=== PATIENT | female | born 1980 ===

== ENCOUNTER → 2019-03-09 | Outpatient (CLI) | payer OTHER ==
[2019-03-14 15:06] LABS: CHLAMYDIA TRACHOMATIS, NAA Negative (Negative); HPV 16 Negative (Negative); HPV 18 Negative (Negative); HPV OTHER HR TYPES Negative (Negative); NEISSERIA GONORRHOEAE, NAA Negative (Negative)
== END | disposition home or self-care (01) ==
LOC: LAB SHORT 11:52 → LAB 11:52
PROVIDERS: Obstetrics & Gynecology
DX: Z36.89 Encounter for other specified antenatal screening (principal)
CPT/HCPCS: 87491; 87591; 87624; G0123

== ENCOUNTER → 2019-08-11 | Outpatient (CLI) | payer OTHER | END | disposition home or self-care (01) | LOC: LAB 11:30 → LAB SHORT 11:30 | DX: O09.529 Supervision of elderly multigravida, unspecified trimester (principal) | CPT/HCPCS: 87081; 87653 ==

== ENCOUNTER 2019-09-01 15:24 | Inpatient (IN) | payer OTHER ==
[~2019-09-01] VITALS: Ht 149.9 cm; Wt 57.0 kg
[2019-09-03] MEDS ORDERED: PRENATAL TABLE1 EAC2 (14:14)
[2019-09-03 14:27] LABS: BASOPHILS ABSOLUTE AUTO 0.04 K/mm3 (0.00-0.23); BASOPHILS PERCENT AUTO 1 % (0-2); EOSINOPHILS ABSOLUTE AUTO 0.03 K/mm3 (0.00-0.68); EOSINOPHILS PERCENT AUTO 0 % (0-6); Hematocrit 33.4 % (33.0-51.0); IMMATURE GRAN ABSOLUTE AUTO 0.03 K/mm3 (0.00-0.10); IMMATURE GRAN PERCENT AUTO 0 % (0-1); LYMPHOCYTES ABSOLUTE AUTO 2.07 K/mm3 (0.84-5.20); LYMPHOCYTES PERCENT AUTO 31 % (21-46); MONOCYTES ABSOLUTE AUTO 0.54 K/mm3 (0.16-1.47); MONOCYTES PERCENT AUTO 8 % (4-13); Mean Corpuscular HGB Conc 32.9 g/dL (31.5-36.5); Mean Corpuscular Volume 85 fL (80-100); Mean Platelet Volume 10.9 fL (9.1-12.4); NEUTROPHILS ABSOLUTE AUTO 3.97 K/mm3 (1.96-9.15); NEUTROPHILS PERCENT AUTO 60 % (41-73); Platelet Count 262 K/mm3 (150-400); RDW Coefficient Variation 12.4 % (11.7-14.2); RDW Standard Deviation 38.1 fL (35.1-46.3); Red Blood Cell Count 3.93 M/mm3 (3.80-5.20); White Blood Cell Count 6.68 K/mm3 (4.00-11.30)
--- NOTE | 2019-09-04 08:34 | NUR ---
PATIENT PERMISSION PATIENT GAVE THIS STUDENT NURSE PERMISSION TO INSERT IV INTO RIGHT FORARM.
--- NOTE | 2019-09-04 10:05 | NUR ---
09/04/19 1005 Janee Ferrer REPEAT SECTION WITH VIABLE FEMALE . APGARS 9/9. WEIGHT 7-9 ([id number]). CORD BLOOD WAS GIVEN TO BABY RN. NO CORD SEGMENT WAS COLLECTED PER MD.
--- NOTE | 2019-09-04 10:38 | NUR ---
PT TO PACU FROM OR. REPEAT . DENIES PAIN BUT IS TIRED. ABHIJEET CARE DONE. NEW GOWN GIVEN. BINDER ON. PAS ON. FUNDAL MASSAGE DONE, FIRM WITH SCANT LOCHIA
[2019-09-05 05:23] LABS: Hematocrit 25.9 % (33.0-51.0); Hemoglobin 8.5 g/dL (11.5-16.0); Mean Corpuscular HGB 27.3 pg (26.0-34.0); Mean Corpuscular HGB Conc 32.8 g/dL (31.5-36.5); Mean Corpuscular Volume 83 fL (80-100); Mean Platelet Volume 10.7 fL (9.1-12.4); Platelet Count 207 K/mm3 (150-400); RDW Coefficient Variation 12.6 % (11.7-14.2); RDW Standard Deviation 38.5 fL (35.1-46.3); Red Blood Cell Count 3.11 M/mm3 (3.80-5.20); White Blood Cell Count 9.53 K/mm3 (4.00-11.30)
--- NOTE | 2019-09-05 09:11 | NUR ---
BOWEL TONES PT STATES HAS NOT PASSED GAS SINCE SURGERY DENIES PAIN OR BLOATING FROM GAS BTS NOTED NORMAL IN ALL 4 QUADRANTS PT TO LET STAFF KNOW IF STARTING TO PASS GAS
--- NOTE | 2019-09-05 17:11 | NUR ---
abd discomfort pt abd is slightly distended pt cont to be unable to pass gas and BTs are hypo active bilat lower quads. call to dr duffy to notify of pt assessment
--- NOTE | 2019-09-06 01:04 | NUR ---
RN ENCOURAGED PT TO GET UP AND WALK AROUND AND TO TRY SITTING ON THE TOILET FOR AWHILE TO SEE IF SHE COULD PASS GAS. PT STILL REPORTS BEING UNABLE TO PASS GAS. BOWEL TONES HEARD IN ALL 4 QUADRANTS. PT DENIES ANY NAUSEA OR VOMITING BUT REPORTS INTERMITTENT MILD GAS PAINS.
[2019-09-06] MEDS ORDERED: IBUP800 PO (10:46)
[2019-09-06] MEDS ORDERED: Percocet 5-3251 EACH PO (10:47)
[2019-09-06] MEDS ORDERED: DOCU100 PO (10:47)
--- NOTE | 2019-09-06 13:37 | NUR ---
DISCHARGE INSTRUCTIONS, WRITTEN AND VERBAL, GIVEN TO PT, HER AND FRIEND. IV DISCONTINUED. FOLLOW UP APPOINTMENT SCHEDULED. WRITTEN PRESCRIPTIONS GIVEN TO PT. ALL PERSONAL BELONGINGS RETURNED. PT IS DISCHARGED HOME WITH .
== END 2019-09-06 14:15 | disposition home or self-care (01) | DRG 788 ==
LOC: BC 09-04 08:01
PROVIDERS: ADMIT Obstetrics & Gynecology
PROC: 10D00Z1 Extraction of Products of Conception, Low, Open Approach (ICD-10-PCS; principal; 2019-09-04 11:45)
DX: O34.211 Maternal care for low transverse scar from previous cesarean delivery (principal); Z3A.39 39 weeks gestation of pregnancy; Z37.0 Single live birth
CPT/HCPCS: 36415; 85025; 85027; 86850; 86900; 86901; J0690; J1885; J2590; J2765; J7120

== ENCOUNTER → 2020-12-19 | Outpatient (CLI) | payer OTHER ==
[~2020-12-19] MED LIST: DOCU100 PO; IBUP800 PO; PRENATAL TABLE1 EAC2; Percocet 5-3251 EACH PO
[2020-12-24 15:10] LABS: HPV 16 Negative (Negative); HPV 18 Negative (Negative); HPV OTHER HR TYPES Negative (Negative)
== END | disposition home or self-care (01) ==
LOC: LAB 19:22 → LAB SHORT 19:22
PROVIDERS: Obstetrics & Gynecology
DX: Z01.419 Encounter for gynecological examination (general) (routine) without abnormal findings (principal)
CPT/HCPCS: 87624; G0123

== ENCOUNTER → 2024-08-30 | Outpatient (CLI) | payer SELFPAY | LOC: LAB SHORT 17:48 → LAB 17:48 | DX: Z11.3 Encounter for screening for infections with a predominantly sexual mode of transmission (principal) | CPT/HCPCS: 86592 ==